=== PATIENT | male | born 1990 | race Caucasian/White ===

== ENCOUNTER 2021-08-06 12:37 | Emergency (ER) | payer OTHER ==
[~2021-08-06] VITALS: Ht 185.4 cm; Wt 77.1 kg
[2021-08-06 15:52] VITALS: BP 145/87
== END 2021-08-06 15:54 | disposition home or self-care (01) ==
LOC: ER 12:37
DX: S43.315A Dislocation of left scapula, initial encounter (principal); Z98.890 Other specified postprocedural states; W17.89XA Other fall from one level to another, initial encounter; Y93.89 Activity, other specified; Y92.89 Other specified places as the place of occurrence of the external cause; Y99.8 Other external cause status